=== PATIENT | male | born 1940 | race Caucasian/White ===

== ENCOUNTER → 2021-11-10 14:21 | Outpatient (BNVA) | payer MEDICARE, SELFPAY | PROVIDERS: Family Provider Electrodiagnostic Medicine; PCP Electrodiagnostic Medicine; Visit Provider Internal Medicine | DX: I10 Essential (primary) hypertension (principal); I25.10 Atherosclerotic heart disease of native coronary artery without angina pectoris; E78.5 Hyperlipidemia, unspecified; Z87.891 Personal history of nicotine dependence | CPT/HCPCS: 99214 ==

== ENCOUNTER → 2022-08-10 14:34 | Outpatient (BNVA) | payer MEDICARE, SELFPAY | PROVIDERS: Family Provider Electrodiagnostic Medicine; PCP Electrodiagnostic Medicine; Visit Provider Internal Medicine | DX: I10 Essential (primary) hypertension (principal); I25.10 Atherosclerotic heart disease of native coronary artery without angina pectoris; E78.5 Hyperlipidemia, unspecified; Z87.891 Personal history of nicotine dependence | CPT/HCPCS: 99214 ==

== ENCOUNTER → 2023-05-18 12:42 | Outpatient (BNVA) | payer MEDICARE, SELFPAY | PROVIDERS: Family Provider Electrodiagnostic Medicine; PCP Electrodiagnostic Medicine; Visit Provider Internal Medicine | DX: I10 Essential (primary) hypertension (principal); I25.10 Atherosclerotic heart disease of native coronary artery without angina pectoris; E78.5 Hyperlipidemia, unspecified; Z87.891 Personal history of nicotine dependence | CPT/HCPCS: 99213 ==

== ENCOUNTER → 2023-11-23 14:18 | Outpatient (BNVA) | payer MEDICARE, SELFPAY | PROVIDERS: Family Provider Electrodiagnostic Medicine; PCP Electrodiagnostic Medicine; Visit Provider Internal Medicine | DX: I10 Essential (primary) hypertension (principal); I25.10 Atherosclerotic heart disease of native coronary artery without angina pectoris; E78.5 Hyperlipidemia, unspecified; Z87.891 Personal history of nicotine dependence | CPT/HCPCS: 99214 ==

== ENCOUNTER → 2024-08-29 12:49 | Outpatient (BNVA) | payer MEDICARE, SELFPAY | PROVIDERS: Family Provider Electrodiagnostic Medicine; PCP Electrodiagnostic Medicine; Visit Provider Internal Medicine Cardiovascular Disease | DX: I25.10 Atherosclerotic heart disease of native coronary artery without angina pectoris (principal); I10 Essential (primary) hypertension; E78.5 Hyperlipidemia, unspecified; Z87.891 Personal history of nicotine dependence | CPT/HCPCS: 99214 ==

== ENCOUNTER 2024-10-13 11:02 | Inpatient (IN) | payer MEDICARE, SELFPAY ==
[2024-10-13] VITALS (40 sets, daily range): BP systolic 110–219; BP diastolic 66–136; PULSE 63–92; RESP 12–29; TEMP 36.4–36.7; O2SAT 89–97
--- NOTE | 2024-10-13 10:45 | CT_ITS ---
WS: [id number] CT HEAD NONCONTRAST HISTORY: Symptoms of acute stroke TECHNIQUE: Contiguous axial imaging performed through the brain. Bone and soft tissue windows. Sagittal and coronal reformats reviewed. All CT scans at [facility] use at least one of these dose optimization techniques: automated exposure control; mA and/or kV adjustment per patient size (includes targeted exams where dose is matched to clinical indication); or iterative reconstruction. DLP: 1299.73 mGy COMPARISON: None available. No acute intracranial hemorrhage, midline shift or mass effect. Moderate atrophy and moderate small vessel disease. Moderate cerebellar atrophy. No edema or sulcal effacement. Ventricles: Ventricles are very mildly prominent on the basis of atrophy. No inferior displacement of the cerebellar tonsils. Paranasal sinuses: As visualized are clear. Mastoid air cells: Well pneumatized. Calvarium and scalp: Skull is intact with no soft tissue edema or swelling. CT/CT head thrombolytic 21747 IMPRESSION: 1. No acute intracranial hemorrhage or edema. 2. Moderate cerebral and cerebellar atrophy with small vessel disease. Notified Freida Benson MD at 10/13/2024 11:08 AM.
--- NOTE | 2024-10-13 10:58 | ED_ITS ---
HPI - Neuro Symptoms/Deficit 2 General: Chief Complaint: Neuro Symptoms/Deficit Stated Complaint: stroke alert History of Present Illness: 84-year-old man with a history of poole ry artery disease status post stents about 13 years ago, hyperlipidemia and hypertension who presents emergency room with strokelike symptoms. His last known well time was 9:30 AM. Arrival time was around 11 AM. Symptoms started after he got to breakfast and it was recognized at 1030 by family that he had changed. He has right-sided facial droop. Some right sided arm and leg weakness. 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 Some slurred speech secondary to the facial droop. He answers questions appropriately. No visual deficits. He is on Plavix but not on any anticoagulation such as Eliquis Xarelto or Coumadin. Related Data Home Medications ?Medication ?Instructions ?Recorded ?Confirmed aspirin 81 mg tablet,delayed 81 mg PO DAILY 08/17/19 0 08/29/24 release (Aspir-) Previous Rx's ?Medication ?Instructions ?Recorded nitroglycerin 0.4 mg sublingual 0.4 mg sublingual Q5M PRN chest 04/20/22 tablet pain #25 tabs simvastatin 40 mg tablet See Rx Instructions .Route 0 04/30/23 .COMPLEX #90 tabs furosemide 20 mg tablet See Rx Instructions .Route 1 02/21/23 .COMPLEX #90 tabs valsartan 80 See Rx Instructions .Route 0 05/11/24 mg-hydrochlorothiazide 12.5 mg .COMPLEX #180 tabs tablet clopidogrel 75 mg tablet See Rx Instructions .Route 0 05/15/24 .COMPLEX #90 tabs potassium chloride 20 mEq See Rx Instructions .Route 0 05/15/24 tablet,extended release(part/cryst) .COMPLEX #90 tabs carvedilol 25 mg tablet See Rx Instructions .Route 0 05/18/24 .COMPLEX #270 tabs Allergies Allergy/AdvReac Type Severity Reaction Status Date / Time lisinopril Allergy Unknown Verified 08/29/24 13:41 Review of Systems 2 Narrative: Constitutional symptoms: Negative except as documented in HPI. Skin symptoms: Negative except as documented in HPI. Eye symptoms: Negative except as documented in HPI. ENMT symptoms: Negative except as documented in HPI. Respiratory symptoms: Negative except as documented in HPI. Cardiovascular symptoms: Negative except as documented in HPI. Gastrointestinal symptoms: Negative except as documented in HPI. Genitourinary symptoms: Negative except as documented in HPI. Musculoskeletal symptoms: Negative except as documented in HPI. Neurologic symptoms: Negative except as documented in HPI. Psychiatric symptoms: Negative except as documented in HPI. Endocrine symptoms: Negative except as documented in HPI. PFSH ED 2 PFSH: Medical History (Updated 10/13/24 @ 13:19 by Freida Benson MD) History of hypertension Hx of obesity Hx of hyperlipidemia Hx of arteriosclerotic cardiovascular disease Family History Other Dementia Denies family history of Diabetes CAD (coronary artery disease) Hyperlipidemia Anesthesia complication Bleeding disorder Family history of premature coronary artery disease Lung disease Hypertension Stroke Social History Smoking and tobacco/nicotine status: former use of tobacco/nicotine Alcohol intake: never Substance/Drug Use: never Physical Exam 2 Narrative: EXAM NARRATIVE: General: Alert, no acute distress. Skin: Warm, dry. Head: Normocephalic, atraumatic. Neck: Supple, trachea midline. Eye: Extraocular movements are intact. Ears, nose, mouth and throat: mucosa moist. Cardiovascular: Regular, Normal peripheral perfusion. Respiratory: Lungs are clear to auscultation, respirations are non-labored, breath sounds are equal, Symmetrical chest wall expansion. Gastrointestinal: Soft, Nontender, Non distended Musculoskeletal: Normal ROM, no deformity. Neurological: Alert and oriented, No focal neurological deficit observed. Psychiatric: Cooperative, appropriate mood & affect. Course 2 Vital Signs: Vital signs: Vital Signs Pulse Rate 77 10/13/24 12:49 Respiratory Rate 18 10/13/24 12:49 Blood Pressure 165/98 10/13/24 12:49 Pulse Oximetry 93 10/13/24 12:49 Oxygen Delivery Me thod Room Air, Nasal C annula 10/13/24 12:49 MDM - Neuro Symptoms/Deficit Medical Decision Making Medical decision making: Differential diagnosis for patient with focal neurologic deficit(s) includes but not limited to and based on the above HPI, review of systems and physical exam: ischemic stroke, hemorrhagic stroke and embolic stroke secondary to atrial fibrillation), TIA, Santos's palsey, metabolic encephalopathy with previous stroke. Orders placed to evaluate differential diagnosis based on the above differential, HPI and physical exam 1103: Time of arrival 1105: Performed my first exam at the CT scanner just prior to CT scan. Positive for stroke symptoms. 1107: NIH Stroke Scale/Score (NIHSS) from [employer] on 10/13/2024 All calculations should be rechecked by clinician prior to use RESULT SUMMARY: 5 points NIH Stroke Scale Still using NIHSS for all strokes? Don't miss a posterior one without HINTS! INPUTS: 1A: Level of consciousness ?> 0 = Alert; keenly responsive 1B: Ask month and age ?> 0 = Both questions right 1C: 'Blink eyes' & 'squeeze hands' ?> 0 = Performs both tasks 2: Horizontal extraocular movements ?> 0 = Normal 3: Visual donald ?> 0 = No visual loss 4: Facial palsy ?> 2 = Partial paralysis (lower face) 5A: Left arm motor drift ?> 0 = No drift for 10 seconds 5B: Right arm motor drift ?> 1 = Drift, but doesn't hit bed 6A: Left leg motor drift ?> 0 = No drift for 5 seconds 6B: Right leg motor drift ?> 1 = Drift, but doesn't hit bed 7: Limb Ataxia ?> 0 = No ataxia 8: Sensation ?> 0 = Normal; no sensory loss 9: Language/aphasia ?> 0 = Normal; no aphasia 10: Dysarthria ?> 1 = Mild-moderate dysarthria: slurring but can be understood 11: Extinction/inattention ?> 0 = No abnormality 1109: I spoke to Dr. Gresham and she evaluated the patient in the room. 1110: I spoke with Dr. Berumen with radiology who confirms there are no acute findings on head CT. No hemorrhage. CT head: No acute intracranial process. no intracranial hemorrhage, no evidence of infarct. no evidence of acute fracture.This was reviewed and interpreted by myself the ER physician. 1112: TNKase was administered. This was under the direction of Dr. Gresham the neurologist. EKG: Time 1117. Rate 65. Atrial fibrillation with controlled rate, there is some ST elevation in leads V1 to V3. No reciprocal changes. Patient is having no chest pain., no ectopy, This was reviewed and interpreted by myself the ER physician at 11:20 AM Consultation: I spoke with Dr. Roldan who reviewed the EKG. He does agree there is some elevation and recommends continued monitoring of troponins and serial EKGs. Does not feel this is a STEMI. Particular given lack of symptoms and given that he just received TNKase no further intervention at this time Lab Review: Laboratory results were reviewed and interpreted by myself the emergency room physician. No leukocytosis. No anemia. No renal failure. Urinalysis is negative for infection. CTA of the head and neck: No high-grade cervical carotid artery stenosis. Distal left MCA territory decreased vascularity. Decreased flow to the left M3/M4 segments. No large central thrombus. Suspect that this is the area of ischemia. This was reviewed and interpreted by myself the emergency room physician. I also reviewed the radiology report. I reviewed the patient's medical record. 84-year-old man with a history of coronary artery disease status post stents about 13 years ago, hyperlipidemia and hypertension. I also reviewed the chart here. He follows with cardiology regularly but there is no EKG for comparison. Reexamination: 1305. Patient still has facial droop and some slight slurred speech. Minimal improvement of right sided weakness. Still follows commands and answers questions appropriately. No increased work of breathing. No oxygen requirements. No headache. Consultation: I spoke with Dr. Adame who is on-call for the hospitalist service who agrees to admission. Assessment and plan: Cerebrovascular accident Hypertension Right-sided weakness Hyperglycemia ?TNKase per neurology instructions as above ?Labetalol for blood pressure IV. ?10 units IV insulin -I discussed the patient with the hospitalist on-call who is admitting the patient. - Discussed findings and plan with patient. Answered any questions. - All laboratory values were reviewed and interpreted personally by myself, the ER physician - All imaging was reviewed and interpreted personally by myself, the ER physician. - Evaluation and treatment of this problem were appropriate in the emergency setting Critical Care: -I spent a total of >35 minutes of critical care time managing the patient, independent of any other practitioner. -The time involved in the performance of separately reportable procedures was not counted towards critical care time. Lab Data 10/13/24 11:18 10/13/24 11:[address] 10/13/24 10:45 IMPRESSION: 1. No acute intracranial hemorrhage or edema. 2. Moderate cerebral and cerebellar atrophy with small vessel disease. Notified Freida Benson MD at 10/13/2024 11:08 AM. Head/Neck CTA 10/13/24 11:30 IMPRESSION: 1. No high-grade cervical carotid artery stenosis. Mild plaque at the bifurcations. 2. Paucity of vessels and decreased vascularity to the distal LEFT MCA territory. Decreased flow near the LEFT M3/M4 segment. No large central thrombus noted. Suspect this is the area of ischemia. 3. Mild calcified plaque in the intracranial carotid arteries. Laboratory Results WBC 7.95 10^3/uL (3.29-11.43) 10/13/24 11:18 RBC 5.36 10^6/uL (3.85-5.65) 10/13/24 11:18 Hgb 16.00 g/dL (11.27-16.99) 10/13/24 11:18 Hct 47.3 % (37-53) 10/13/24 11:18 MCV 88.2 fl (82-101) 10/13/24 11:18 MCH 29.9 pg (27-33) 10/13/24 11:18 MCHC 33.8 g/dL (30-55) 10/13/24 11:18 RDW 13.8 % (12.1-15.1) 10/13/24 11:18 Plt Count 213 10^3/cmm (157-399) 10/13/24 11:18 MPV 10.9 fL (7.4-10.4) H 10/13/24 11:18 Neut % (Auto) 75.1 % 10/13/24 11:18 Lymph % (Auto) 17.6 % 10/13/24 11:18 [place] % (Auto) 5.3 % 10/13/24 11:18 Eos % (Auto) 1.1 % 10/13/24 11:18 Baso % (Auto) 0.5 % 10/13/24 11:18 Neut # (Auto) 5.97 10^3/uL (1.8-7.7) 10/13/24 11:18 Lymph # (Auto) 1.4 10^3/uL (0.8-4.8) 10/13/24 11:18 [place] # (Auto) 0.4 10^3/uL (0.2-0.9) 10/13/24 11:18 Eos # (Auto) 0.1 10^3/uL (0.0-0.8) 10/13/24 11:18 Baso # (Auto) 0.0 10^3/uL (0.0-0.1) 10/13/24 11:18 Nucleated RBC % (auto) 0 % 10/13/24 11:18 Nucleated RBCs # 0.0 /100WBC 10/13/24 11:18 PT 12.60 SECONDS (12.1-14.9) 10/13/24 11:18 INR 0.88 (0.8-1.2) 10/13/24 11:18 APTT 27.3 SECONDS (23.9-36.7) 10/13/24 11:18 Sodium 131 mmol/L (136-145) L 10/13/24 11:18 Potassium 4.6 mmol/L (3.5-5.1) 10/13/24 11:18 Chloride 94 mmol/L (98-107) L 10/13/24 11:18 Carbon Dioxide 24 mmol/L (22-29) 10/13/24 11:18 Anion Gap 17.6 (5-19) 10/13/24 11:18 BUN 12 mg/dL (8-23) 10/13/24 11:18 Creatinine 0.9 mg/dL (0.7-1.2) 10/13/24 11:18 GFR Calculation Not Reportable 10/13/24 11:18 Glucose 423 mg/dL (65-115) H 10/13/24 11:18 POC Glucose 343 mg/dL (70-110) H 10/13/24 12:20 Calculated Osmolality 290 mOsm/kg (285-295) 10/13/24 11:18 Calcium 8.9 mg/dL (8.5-10.5) 10/13/24 11:18 Total Bilirubin 0.3 mg/dL (0.15-1.2) 10/13/24 11:18 AST 13 U/L (0-40) 10/13/24 11:18 ALT 10 U/L (0-41) 10/13/24 11:18 Alkaline Phosphatase 57 U/L (40-130) 10/13/24 11:18 Troponin T Baseline 26 ng/L (0-15) H 10/13/24 11:18 Total Protein 7.4 g/dL (6.6-8.7) 10/13/24 11:18 Albumin 4.1 g/dL (3.5-5.2) 10/13/24 11:18 Globulin 3.3 g/dL (1.3-4.6) 10/13/24 11:18 Urine Color Yellow (Yellow) 10/13/24 12:12 Urine Appearance Clear (CLEAR) 10/13/24 12:12 Urine pH 5.5 (5-7) 10/13/24 12:12 Ur Specific [place] 1.029 (1.005-1.030) 10/13/24 12:12 Urine Protein Negative (Negative) 10/13/24 12:12 Urine Glucose (UA) 3+ (Normal) H 10/13/24 12:12 Urine Ketones Negative (Negative) 10/13/24 12:12 Urine Blood Negative (Negative) 10/13/24 12:12 Urine Nitrate Negative (Negative) 10/13/24 12:12 Urine Bilirubin Negative (Negative) 10/13/24 12:12 Urine Urobilinogen 0.2 mg/dL (Negative) 10/13/24 12:12 Ur Leukocyte Esterase Negative (Negative) 10/13/24 12:12 Urine RBC 0-2 /hpf (0-2) 10/13/24 12:12 Urine WBC 0-5 /hpf (0-5) 10/13/24 12:12 Ur Squamous Epith Cells 0-5 /hpf (0-5) 10/13/24 12:12 Amorphous Sediment Not Reportable 10/13/24 12:12 Urine Bacteria None seen /hpf (NONE) 10/13/24 12:12 Hyaline Casts 0-4 /lpf H 10/13/24 12:12 Urine Opiates Screen Negative ng/mL (Negative) 10/13/24 12:12 Ur Barbiturates Screen Negative ng/mL (Negative) 10/13/24 12:12 Ur Phencyclidine Scrn Negative ng/mL (Negative) 10/13/24 12:12 Ur Amphetamines Screen Negative ng/mL (Negative) 10/13/24 12:12 U Benzodiazepines Scrn Negative ng/mL (Negative) 10/13/24 12:12 Urine Cocaine Screen Negative ng/mL (Negative) 10/13/24 12:12 U Marijuana (THC) Screen Negative ng/mL (Negative) 10/13/24 12:12 All radiology interpretation(s) finalized by discharge Discharge Plan Discharge Patient Disposition: Admitted As Inpatient Clinical Impression: Cerebrovascular accident, Hypertension, Acute right-sided weakness, Weakness on right side of face Condition: Stable Coding Level of Care Code ED Imagery Analyst for Karen Luis
[2024-10-13] MEDS: labetalol 5 mg/mL SDV 20mL 10 MG IVP (11:08)
[2024-10-13] MEDS: tenecteplase 50mg Kit (STROKE) 25 MG IVP (11:12)
--- NOTE | 2024-10-13 11:17 | ECG_ITS ---
[facility] [employer] Test Date: 2024-10-13 Pat Name: Javi Cedeño Department: Room: Gender: Male Manager Control: : 1940 Requested By: Freida Rojo Order Number: [id number] Steve MD: Izabela Jung M.D. Measurements Intervals [place] Rate: 65 P: 0 IA: 0 QRS: 51 QRSD: 117 T: 157 QT: 448 QTc: 469 Interpretive Statements ATRIAL FIBRILLATION ANTEROLATERAL MYOCARDIAL INFARCTION , PROBABLY RECENT [40+ ms Q WAVE IN I/aVL/V3-V6] ACUTE AL No previous ECG available for comparison Electronically Signed On 10-13-2024 20:20:50 CDT by Izabela Jung M.D. [email or web address]
--- NOTE | 2024-10-13 11:30 | CT_ITS ---
WS: [id number] CT ANGIOGRAM CEREBRAL AND CAROTID ARTERIES HISTORY: Possible stroke TECHNIQUE: CT angiogram is performed of the carotid and cerebral arteries. During arterial injection imaging is obtained from the skull vertex to the aortic arch in 1.25 mm imaging. Coronal and sagittal reformats are submitted. Additional multi planar reformats of the carotid and cerebral arteries are submitted, MIP imaging also reviewed. NASCET criteria utilized. All CT scans at [facility] use at least one of these dose optimization techniques: automated exposure control; mA and/or kV adjustment per patient size (includes targeted exams where dose is matched to clinical indication); or iterative reconstruction. CONTRAST: Omnipaque 350; 100 mL IV. DLP: 573.08 mGy.cm COMPARISON: None available. Carotid Angiogram: Right carotid: Common carotid artery: Arises normally from the innominate artery. No significant plaque or stenosis. Internal carotid artery: Mild intimal thickening and a few scattered plaques at the bifurcation. No high-grade stenosis. External carotid artery: Patent. Left carotid: Common carotid artery: Arises normally from the aorta. No significant plaque or stenosis. Internal carotid artery: Mild circumferential intimal thickening and calcified plaque. No high-grade stenosis. External carotid artery: Patent. Right vertebral artery: Unremarkable. Left vertebral artery: Patent. There are few areas of very mild narrowing in the transverse foramina. No occlusion. Subclavian arteries: No stenosis or significant abnormality. Upper thorax: Breathing artifact. Mild atherosclerosis aorta. Thyroid gland: Normal. Osseous structures: Degenerative disc disease and facet joint arthropathy. CEREBRAL ANGIOGRAM: Intracranial vertebral arteries: Normal with no significant atherosclerosis. Basilar artery: No significant stenosis or occlusion. No aneurysm. Intracranial Internal carotid arteries: Intracranial carotid arteries are patent but there is a moderate amount of plaque to the cavernous carotid sinuses. Stenosis estimated near 50%. Middle cerebral arteries: M1 and M2 segments are normal. There is a paucity of vessels in the distal LEFT MCA territory. Area of decreased flow at the LEFT M3/M4 segments. Decreased vascularity in the distal LEFT MCA territory. Anterior cerebral arteries and ACOM: Normal. Posterior cerebral arteries and PCOM's: Normal. Small caliber LEFT posterior communicating artery. Dural venous sinuses are normally enhancing. Mastoid air cells: Normal. Paranasal sinuses: Normal. Calvarium: Normal. CT/CT angio headneck* [id number] IMPRESSION: 1. No high-grade cervical carotid artery stenosis. Mild plaque at the bifurcat ions. 2. Paucity of vessels and decreased vascularity to the distal LEFT MCA territo ry. Decreased flow near the LEFT M3/M4 segment. No large central thrombus noted . Suspect this is the area of ischemia. 3. Mild calcified plaque in the intracranial carotid arteries.
[2024-10-13 11:31] LABS: Hematocrit 47.3 % (37-53); Hemoglobin 16.00 g/dL (11.27-16.99); Mean Corpuscular HGB Conc 33.8 g/dL (30-55); Mean Corpuscular Hemoglobin 29.9 pg (27-33); Mean Corpuscular Volume 88.2 fl (82-101); Nucleated Red Blood Cells % 0 %; Platelet Count 213 10^3/cmm (157-399); Red Blood Count 5.36 10^6/uL (3.85-5.65); White Blood Count 7.95 10^3/uL (3.29-11.43)
[2024-10-13 11:44] LABS: INR 0.88 (0.8-1.2); Prothrombin Time 12.60 SECONDS (12.1-14.9)
[2024-10-13 11:45] LABS: Partial Thromboplastin Time 27.3 SECONDS (23.9-36.7)
[2024-10-13 11:49] LABS: Troponin(5th) Baseline 26 ng/L (0-15)
[2024-10-13 11:50] LABS: Alanine Aminotransferase 10 U/L (0-41); Albumin Level 4.1 g/dL (3.5-5.2); Alkaline Phosphatase 57 U/L (40-130); Anion Gap 17.6 (5-19); Aspartate Amino Transferase 13 U/L (0-40); Blood Urea Nitrogen 12 mg/dL (8-23); Calcium 8.9 mg/dL (8.5-10.5); Carbon Dioxide 24 mmol/L (22-29); Chloride 94 mmol/L (98-107); Creatinine Clr Calc Pharmacy 68.9276; Globulin 3.3 g/dL (1.3-4.6); Glucose 423 mg/dL (65-115); Osmolality Calculated 290 mOsm/kg (285-295); Potassium 4.6 mmol/L (3.5-5.1); Sodium 131 mmol/L (136-145); Total Protein 7.4 g/dL (6.6-8.7)
[2024-10-13] MEDS: iohexol 350 mg/mL 500 mL Btl (per mL) IV (12:00)
--- NOTE | 2024-10-13 12:12 | P.PNCC_ITS ---
Stroke Alert Activation ED Arrival Date: 10/13/24 ED Arrival Time: 10:45 ED Physican at Bedside: 10:58 Last Known Normal/at Baseline: 1-2 hours ago Other Last Known Well Infomation: A stroke alert was called by EMS at 1042, prior to arrival. They picked this patient [place] in [place] 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 He says that he got up this morning and drove to [employer] and had breakfast. Sometime while he was there he started feeling a little unsteady but he drove home. By the time he got home his speech was slurred. He got to [employer] at around 9 or 930 and that is considered to be his time last known well. The medic indicates that the patient's speech was easily intelligible at the time they picked him up and now it is hard to understand anything he says. He has right hemiplegia and did on arrival. Consideration for thrombolytic therapy was from time of arrival and his CT scan, obtained on arrival was unremarkable. His blood pressure was markedly elevated but 1 dose of labetalol brought it down and we were able to initiate TNK with his permission and informed consent at 1112. His [id number] glucose was elevated over 400 something like 412, which was not a contraindication. Stroke Alert Activated by: EMS Stroke Alert Activation Time: 10:42 Stroke MD @ Bedside Time: 11:00 NIH Stroke Scale Time: 11:00 NIH stroke score NIHSS: Level Of Consciousness - 1a: 0 Level Of Consciousness Questions - 1b: Both Correct Level Of Consciousness Commands - 1c: Both Correct Best Gaze - 2: Normal Visual Doll - 3: No Visual Loss Facial Palsy - 4: Partial Paralysis Motor Arm Right - 5: Drift Motor Arm Left - 5: No Drift Motor Leg Right - 6: Effort Against [place] Motor Leg Left - 6: No Drift Limb Ataxia - 7: Absent Sensory - 8: Mild To Moderate Loss (Right leg) Best Language - 9: No Aphasia Dysarthia - 10: Severe Dysarthia Extinction And Inattention - 11: 0 Score: Total Score: 8 Stroke Alert Data/Treatment Time to CT of Head: 11:00 CT Results Time: 11:08 CT Impression: Diffuse atrophy Stroke Risk Factors: coronary artery disease, hyperlipidemia, hypertension and previous [place] tPA Started Date: 10/13/24 tPA Started Time: tPA Started - Time: 11:12 tPA Admin Prior to Arrival: No Patient & Family Educated on: Treament Plan and tPA Risks/Benefits Other Patient & Family Education: I personally obtained informed consent from the patient and explained the treatment process and that what he would be admitted to ICU and receive physical and Occupational Therapy Standardized Stroke Orders Used: Yes Other Information: CTA in process she has bilateral carotid stenosis but not critical. Middle cerebral and anterior cerebral arteries appear intact. Posterior circulation also intact. Multiple calcifications within the vascular system. I do not see a large vessel occlusion but the radiologist is reading. Critical Care Time Critical Care Time: 30 - 74 mins A&P Assessment and plan 1. Left acute arterial ischemic stroke, MCA (middle cerebral artery): This is an otherwise healthy 84-year-old blandon already on Plavix and aspirin for coronary disease who presents with what appears to be a subcortical left internal capsule stroke based on weakness of the arm, face and leg. No sign of a large vessel occlusion on my reading of the CTA but the radiologist is continuing to review that. He received TNK within a couple of hours of onset of symptoms. We were delayed because his blood pressure was markedly elevated and his blood pressure will need to be closely monitored post TNK. Plan to admit to ICU to the hospitalist and please call me if there are any issues or concerns. 2. Hypertension: 3. CAD (coronary artery disease): PDMP PDMP Reviewed: Not Reviewed Coding Level of Care Code Acute Code for [facility] Fwd Diagnoses Left acute arterial ischemic stroke, MCA (middle cerebral artery) I63.512 Hypertension I10 CAD (coronary artery disease) I25.10
--- NOTE | 2024-10-13 12:21 | PC.NURSE ---
pt glucose on arrival 423. [phone] via FS prior to administering 10u of insulin. pt ate prior to arrival and took Metformin this morning. per Dr. Benson to hold 10 unit insulin at this time.
[2024-10-13 12:34] LABS: Glucose Urine UA 3+ (Normal); Nitrate Urine Negative (Negative); Specific Gravity, Urine 1.029 (1.005-1.030)
[2024-10-13 12:39] LABS: PCP Screen Urine Negative (Negative)
[2024-10-13 12:40] LABS: Add Urine Microscopic? YES
--- NOTE | 2024-10-13 13:21 | USCV_ITS ---
Javi Cedeño Age: 84 Gender: M : 1940 Exam Date: 10/13/2024 15:58 Ordering Phys: John Adame MD Technologist: Exam Location: [facility] [place] Indication: CVA BP: 174 / 124 HR: 89 Rhythm: Sinus Technical Quality: Adequate MEASUREMENTS (Male / Female) Normal Values 2D ECHO LVOT Diameter 2.1 cm LV Ejection Fraction MOD 4C 41.6 % LV Ejection Fraction MOD 2C 45.2 % LV Ejection Fraction 2C AL 42.9 % LA Diameter 4.0 cm RA Systolic Volume 4C AL 74.0 ml RA Systolic Volume 4C MOD 72.7 ml Aorta at Sinotubular Diameter 3.1 cm M-MODE LA Ao Ratio MM 1.5 AV Cusp Separation MM 2.4 cm DOPPLER AV Peak Velocity 163.0 cm/s LVOT Peak Velocity 93.0 cm/s AV Area Cont Eq vti 2.1 cm squared AV Area Cont Eq pk 1.9 cm squared MV Peak Velocity 135.0 cm/s MV Area PHT 5.0 cm squared Mitral E to A Ratio 3.2 TR Peak Velocity 109.0 cm/s TR Peak Gradient 4.8 mmHg PV Peak Velocity 120.0 cm/s FINDINGS Left Ventricle Technically limited quality echocardiogram. LV systolic function is moderate to severely reduced with EF of 30 to 35%. Apical wall is akinetic. Right Ventricle Normal in size and function Right Atrium Normal right atrial size. Left Atrium Severely increased left atrial size. Mitral Valve Grossly normal. Trace mitral regurgitation Aortic Valve Thickened aortic valve. No significant stenosis or regurgitation. Tricuspid Valve Insufficient TR jet to assess RVSP Pulmonic Valve Not well visualized Pericardium Normal Aorta Normal in size IVC Not well visualized CONCLUSIONS LV systolic function is moderate to severely reduced with EF of 30-35%. Apical wall is akinetic. Severely dilated left atrium. Trace mitral regurgitation. Huseyin Roldan MD (Electronically Signed) Final Date: 14 October 2024 08:00 S
--- NOTE | 2024-10-13 13:30 | ECG_ITS ---
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 Measurements Intervals [place] Rate: 67 P: 0 CT: 0 QRS: 58 QRSD: 109 T: 66 QT: 425 QTc: 449 Interpretive Statements ATRIAL FIBRILLATION WITH ABERRANT CONDUCTION OR VENTRICULAR PREMATURE COMPLEXES ANTEROLATERAL MYOCARDIAL INFARCTION , OF INDETERMINATE AGE [40+ ms Q WAVE IN I/aVL/V3-V6] Compared to ECG 10/13/2024 11:17:54 Ventricular premature complex(es) now present Aberrant conduction of supraventricular beat(s) now present Myocardial infarct finding still present Electronically Signed On 10-13-2024 20:29:16 CDT by Izabela Jung M.D. [email or web address]
[2024-10-13 13:46] LABS: Thyroid Stimulating Hormone 2.97 uIU/mL (0.27-4.20)
[2024-10-13 14:13] LABS: Troponin 5 2HR 27.67 ng/L (0-15); Troponin 5 2HR Delta 1.67 ABS# (0-10)
--- NOTE | 2024-10-13 14:34 | P.HP_ITS ---
Providers/Chief Complaint 2 Admitting Physician: John Adame MD Primary Care Provider: Cordell Parrish DO Chief Complaint: stroke alert History of Present Illness Javi Cedeño is a 84 year old male with past medical history of CAD, hypertension, hyperlipidemia was brought into the ER via EMS today because of slurred speech and weakness on the right side of the body. Patient states he started having symptoms sometime around 9-9 30. Stroke code was called at 1042. He was found to have an NIH score of 8. Patient was seen by neurology in the ER and was given tenecteplase. When seen in the ICU with nephew at bedside patient still having slurred speech, awake and alert. Found to have A-fib with controlled rate on telemetry monitoring. Complaining of weakness on the right side. Denies any pain. Review of Systems 2 General: Reports: 10 or more systems reviewed and unremarkable except in HPI and below Const: Denies: fever(s), chills, body aches, change in appetite, change in weight, malaise, night sweats, diaphoresis, change in sleep pattern, daytime sleepiness or snoring Eyes: Denies: change in vision, blurry vision, photophobia, eye discomfort or eye discharge ENMT: Denies: throat pain, enlarged tonsils, hoarseness, mouth pain, oral sores, dry mouth, tinnitus, nasal congestion or post nasal drip Card: Denies: chest pain, palpitations, irregular heart rhythm, edema, swelling of feet/ankles, lightheadedness, syncope, pre-syncope, dyspnea on exertion, orthopnea, leg pain with exertion or acrocyanosis Resp: Denies: dyspnea, productive cough, non-productive cough, wheezing, stridor, pain on inspiration, change in phlegm color, hemoptysis or chest congestion GI: Denies: abdominal pain, nausea, vomiting, hematemesis, coffee ground emesis, dysphagia, heartburn, diarrhea, constipation, bloating, GI cramping, change in bowel habits, pain on defecation, hematochezia or melena : Denies: flank pain, difficulty urinating, dysuria, urinary frequency, urinary urgency, urinary hesitancy, urinary dribbling, difficulty starting urination, change in urine stream, nocturia or hematuria Musc: Denies: neck pain, back pain, extremity pain, joint pain, joint swelling, joint redness, joint stiffness or limited range of motion Neuro: Denies: headache(s), numbness in extremities, weakness in extremities, sensory changes, lack of coordination, difficulty walking, frequent falls, dizziness, vertigo, confusion, Slurred speech present, difficulty communicating thoughts or seizure-like activity Psych: Denies: anxiety, depression, mood swings, panic attacks, hopelessness or irritability Endo: Denies: polyuria, polydipsia, tired all the time, cold intolerance, excessive sweating, flushing or heat intolerance David/Lymph: Denies: easy bruising or easy bleeding All/Imm: Denies: tongue swelling, facial swelling or acute wheezing Medications/Allergies Home Medications ?Medication ?Instructions ?Recorded ?Confirmed ?Last Taken ?Type aspirin 81 mg tablet,delayed 81 mg PO DAILY 08/17/19 0 08/29/24 Unknown History release (Aspir-) nitroglycerin 0.4 mg sublingual 0.4 mg sublingual Q5M PRN chest 04/20/22 08/29/24 Unknown Rx tablet pain #25 tabs simvastatin 40 mg tablet See Rx Instructions .Route 0 04/30/23 11/23/23 Unknown Rx .COMPLEX #90 tabs furosemide 20 mg tablet See Rx Instructions .Route 1 02/21/23 08/29/24 Unknown Rx .COMPLEX #90 tabs valsartan 80 See Rx Instructions .Route 0 05/11/24 08/29/24 Unknown Rx mg-hydrochlorothiazide 12.5 mg .COMPLEX #180 tabs tablet clopidogrel 75 mg tablet See Rx Instructions .Route 0 05/15/24 08/29/24 Unknown Rx .COMPLEX #90 tabs potassium chloride 20 mEq See Rx Instructions .Route 0 05/15/24 08/29/24 Unknown Rx tablet,extended release(part/cryst) .COMPLEX #90 tabs carvedilol 25 mg tablet See Rx Instructions .Route 0 05/18/24 08/29/24 Unknown Rx .COMPLEX #270 tabs Allergies Allergy/AdvReac Type Severity Reaction Status Date / Time lisinopril Allergy Unknown Verified 08/29/24 13:41 PFSH Acute 2 PFSH: Medical History (Updated 10/13/24 @ 16:42 by John Adame MD) Hypertension Hx of type 2 diabetes mellitus Hx of obesity Hx of hyperlipidemia Hx of arteriosclerotic cardiovascular disease Surgical History (Updated 10/13/24 @ 14:37 by John Adame MD) History of percutaneous transluminal coronary angioplasty Hx of hernia repair Hx of right cataract extraction Family History Other Dementia Denies family history of Diabetes CAD (coronary artery disease) Hyperlipidemia Anesthesia complication Bleeding disorder Family history of premature coronary artery disease Lung disease Hypertension Stroke Social History Smoking and tobacco/nicotine status: former use of tobacco/nicotine Alcohol intake: never Substance/Drug Use: never Vitals/I&O/Wt Last Vital Signs Pulse 65 10/13/24 14:01 Resp 17 10/13/24 14:01 BP 175/104 10/13/24 14:01 Pulse Ox 96 10/13/24 14:01 O2 Del Method Room Air 10/13/24 14:01 Weight last 48 hrs Weight 103.873 kg Physical Exam 2 Narrative: General: No acute distress, AO x3 HEENT: PERRLA, pupils bilaterally equal and reactive Chest: Normal vesicular breath sounds, no added sounds, equal good air entry bilaterally CVS: S1-S2 regular, no murmurs, no tachycardia, no gallops, no rubs Abdomen: Soft, nontender, no organomegaly, bowel sounds present Neuro: No focal deficits, no facial deformity, AO x3, power 5/5 in all limbs Data 10/13/24 11:18 10/13/24 11:18 A&P Assessment and plan 1. Left acute arterial ischemic stroke, MCA (middle cerebral artery): Post tenecteplase. Appreciate neurology recommendation. Repeat CT scan of head in 24 hours. Fall precaution. Aspirin 24 hours after tenecteplase. Check echocardiogram. Appreciate CTA neck. Check A1c, lipid panel. Atorvastatin 80 mg daily. PT/OT/speech evaluation. Advance diet as per speech evaluation. Goal blood pressure less than 180/105 mmHg. 2. 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 Hypertension: Hold off on home dose of antihypertensive including valsartan, Coreg and hydrochlorothiazide. 4. CAD (coronary artery disease): 5. Hyperlipidemia: 6. Atrial fibrillation and flutter: Plan: Atrial fibrillation: New diagnosis. Given the above patient will need to be discharged on anticoagulation. Will start anticoagulation in 24 to 48 hours after tPA. CODE STATUS: Discussed in detail with the patient. Nephew will be the DPOA. DNR/DNI SCD for DVT prophylaxis Advance diet as per speech evaluation Protonix for PUD prophylaxis Discharge plan: Patient lives by himself. Nephew states it would be better if he continues to have weakness for him to possibly transition to SNF otherwise he is available to take patient his home his home as well but would want to see how he does in next 24 to 48 hours with PT. Case management alerted. PDMP PDMP Reviewed: Not Reviewed Attestations 2 Medical Necessity Statement*: Requires further hospitalization for management of right MCA infarct post tPA Care Critical Care Time: The high probability of a clinically significant, sudden or life threatening deterioration of the patient's [neurology] system(s) required my full and direct attention, intervention and personal management. The critical care time is as shown. This time is in addition to time spent performing any reported procedures but includes the following: [x] Data and vital sign review and interpretation [x] Patient assessment, examination and intervention [x] Documentation [x] Medication orders and management Critical Care Time (min): 65 Coding Level of Care Code Critical Care >/= 30 minutes Critical care time (in minutes): 65 The high probability of a clinically significant, sudden or life threatening deterioration, as referenced in this documentation, required my full and direct attention, intervention and personal management. The critical care time shown is in addition to time spent performing any reported separately billable procedures and includes the following: [x] Data and vital sign review and interpretation [x ] Patient assessment, examination and intervention [x] Medication orders and management [x] Patient/Family updates as able [x] Care Coordination and Documentation. 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
[2024-10-13 14:53] LABS: Iron 67 ug/dL (59-158); Total Iron Binding Capacity 275 mcg/dl; Unsaturated Iron Binding 208 ug/dL (112-347)
[2024-10-13] MEDS: hyDRALAzine 20 mg/mL INJ 1 mL 10 MG IVP ×2 (14:59→16:11)
[2024-10-13 15:05] LABS: Vitamin B12 230 pg/mL (232-1245)
[2024-10-13] MEDS: cyanocobalamin 1,000 mcg/mL SDV 1000 MCG IM (16:11)
[2024-10-13] MEDS: perflutren protein-a microsphr 0.22 mg/mL SDV 3 mL IV (16:21)
--- NOTE | 2024-10-13 17:25 | ECG_ITS ---
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 Measurements Intervals [place] Rate: 80 P: 0 IA: 0 QRS: 76 QRSD: 122 T: 0 QT: 390 QTc: 451 Interpretive Statements ATRIAL FIBRILLATION ANTEROLATERAL MYOCARDIAL INFARCTION , PROBABLY RECENT [40+ ms Q WAVE IN I/aVL/V3-V6] ACUTE MA Compared to ECG 10/13/2024 13:30:29 Ventricular premature complex(es) no longer present Aberrant conduction of supraventricular beat(s) no longer present Myocardial infarct finding still present Electronically Signed On 10-13-2024 20:27:19 CDT by Izabela Jung M.D. [email or web address]
[2024-10-13 17:30] LABS: Troponin 5 6HR 28.61 ng/L (0-15); Troponin 5 6HR Delta 2.61 ng/L (0-12)
[2024-10-14] VITALS (31 sets, daily range): BP systolic 114–187; BP diastolic 66–118; PULSE 66–85; RESP 10–22; TEMP 36.6; O2SAT 91–96
--- NOTE | 2024-10-14 08:17 | PC.PHAR ---
Pt states he used to take Metformin-unable to locate an order for it. Looks like future plan is to discharge to [facility].
--- NOTE | 2024-10-14 08:47 | XRR_ITS ---
PROCEDURE INFORMATION: Exam: XR Chest Exam date and time: 10/14/2024 10:03 AM Age: 84 years old Clinical indication: Cardiovascular condition or disease; Congestive heart failure (chf); Cause unknown; Additional info: Chf, fluid retention; Recent stroke TECHNIQUE: Imaging protocol: Radiologic exam of the chest. Views: 1 view. COMPARISON: CT angio headneck* [id number] 10/13/2024 11:45 AM FINDINGS: Lungs: Low lung volumes. No airspace consolidation. Pleural spaces: Unremarkable. No pleural effusion. No pneumothorax. Heart/Mediastinum: Cardiomegaly. Bones/joints: Unremarkable. XR/XR chest 1V portable [id number] IMPRESSION: Low lung volumes. No airspace disease. Cardiomegaly.
[2024-10-14] MEDS: cyanocobalamin 1,000 mcg/mL SDV 1000 MCG IM (09:29)
[2024-10-14 11:45] LABS: Hematocrit 52.2 % (37-53); Hemoglobin 17.80 g/dL (11.27-16.99); Mean Corpuscular HGB Conc 34.1 g/dL (30-55); Mean Corpuscular Hemoglobin 29.7 pg (27-33); Mean Corpuscular Volume 87.1 fl (82-101); Nucleated Red Blood Cells % 0 %; Platelet Count 253 10^3/cmm (157-399); Red Blood Count 5.99 10^6/uL (3.85-5.65); White Blood Count 11.65 10^3/uL (3.29-11.43)
[2024-10-14 12:05] LABS: Alanine Aminotransferase 10 U/L (0-41); Albumin Level 4.2 g/dL (3.5-5.2); Alkaline Phosphatase 64 U/L (40-130); Anion Gap 15.7 (5-19); Aspartate Amino Transferase 14 U/L (0-40); Blood Urea Nitrogen 10 mg/dL (8-23); Calcium 9.3 mg/dL (8.5-10.5); Carbon Dioxide 26 mmol/L (22-29); Chloride 95 mmol/L (98-107); Creatinine Clr Calc Pharmacy 76.1746; Globulin 3.5 g/dL (1.3-4.6); Glucose 242 mg/dL (65-115); Osmolality Calculated 283 mOsm/kg (285-295); Potassium 3.7 mmol/L (3.5-5.1); Sodium 133 mmol/L (136-145); Total Protein 7.7 g/dL (6.6-8.7)
[2024-10-14 12:14] LABS: Cholesterol 206 mg/dL (0-200); HDL Cholesterol 38 mg/dL (60-100); Magnesium 2.2 mg/dL (1.7-2.3); Triglycerides 178 mg/dL (0-150)
[2024-10-14 12:19] LABS: Estmated Average Glucose 243; Hemoglobin A1C 10.1 % (4.0-6.0)
[2024-10-14 12:25] LABS: NT Pro B Type Natriuretic Pept 1880 pg/mL (0-450)
--- NOTE | 2024-10-14 12:30 | CTR_ITS ---
PROCEDURE INFORMATION: Exam: CT Head Without Contrast Exam date and time: 10/14/2024 01:04 PM Age: 84 years old Clinical indication: Weakness, extremity; Right; Additional info: Acute stroke TECHNIQUE: Imaging protocol: Computed tomography of the head without contrast. Radiation optimization: All CT scans at this facility use at least one of these dose optimization techniques: automated exposure control; mA and/or kV adjustment per patient size (includes targeted exams where dose is matched to clinical indication); or iterative reconstruction. COMPARISON: CT angio headneck* [id number] 10/13/2024 11:45 AM RADIATION DOSE METRICS: Total DLP (mGy-cm): 1114.88 FINDINGS: Brain: Focal decreased attenuation within the lower steve, suggestive of infarct. Diffuse white matter changes suggestive of chronic microvascular ischemic changes. No acute intracranial hemorrhage, midline shift or mass effect. Mild diffuse cerebral atrophy. Cerebellar atrophy. No sulcal effacement to suggest edema. Cerebral ventricles: Normal in size and configuration. Paranasal sinuses: Mild mucosal thickening in the rightward sphenoid sinus. Mastoid air cells: Visualized mastoid air cells are well aerated. Bones: Unremarkable. No acute fracture. Soft tissues: Unremarkable. CT/CT head wo con* [id number] IMPRESSION: 1. Decreased attenuation involving the lower steve, suggestive of infarct, acuity uncertain. 2. No acute intracranial hemorrhage. 3. Diffuse cerebral and cerebellar atrophy.
--- NOTE | 2024-10-14 13:11 | PM.PN ---
Subjective Subjective: No acute events overnight. Patient has remained afebrile. Blood pressure is elevated. But at goal. Patient denies any new weakness. Vitals/I&O/Wt Last Vital Signs Temp 98 F 10/14/24 12:00 Pulse 82 10/14/24 12:00 Resp 20 H 10/14/24 12:00 BP 170/118 10/14/24 12:00 Pulse Ox 95 10/14/24 11:00 O2 Del Method Room Air 10/14/24 09:30 10/13/24 10/14/24 10/14/24 22:59 06:59 14:59 Output Total 825 / 825 250 / 1075 Balance -825 / -825 -250 / -1075 Weight last 48 hrs Weight 100.289 kg Weight 103 kg Weight 103.873 kg Physical Exam Narrative: General: No acute distress, AO x3 HEENT: PERRLA, pupils bilaterally equal and reactive Chest: Normal vesicular breath sounds, no added sounds, equal good air entry bilaterally CVS: S1-S2 regular, no murmurs, no tachycardia, no gallops, no rubs Abdomen: Soft, nontender, no organomegaly, bowel sounds present Neuro: No focal deficits, no facial deformity, AO x3, power 5/5 in all limbs Data 10/14/24 11:35 10/14/24 11:35 A&P Assessment and plan 1. Left acute arterial ischemic stroke, MCA (middle cerebral artery): Post tenecteplase. Appreciate neurology recommendation. Repeat CT scan of head in 24 hours. Awaited. Around 2 PM. Fall precaution. PT/OT/speech evaluation. Villa diet accordingly. Aspirin 81 mg daily, statin 80 mg nightly. Appreciate A1c, lipid panel. Goal blood pressure today less than 140/90 mmHg after 24 hours of tPA. Appreciate echocardiogram. 2. 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 Atrial fibrillation and flutter: Currently rate controlled. Will need anticoagulation prior to discharge. Patient is post tPA in less than 24 hours. Will plan to add anticoagulation in next 24 hours. 4. Primary hypertension: Elevated. 24 hours after tPA hold blood pressure less than 140/90 mmHg. Till then continue with IV hydralazine 5 mg every 6 hours as needed for systolic more than 160. After that can gradually start Coreg at 6.25 mg twice daily, Entresto 1 tablet twice daily, amlodipine 10 mg oral daily with goal blood pressure in mind. Uptitrate as per goal blood pressures in next 24 to 48 hours. 5. Acute combined systolic and diastolic congestive heart failure: Echocardiogram done shows EF of 3035%, apical akinetic wall, severely dilated LA with trace MR. Currently patient euvolemic. Given history of CAD will be important to rule out ACS. Will plan for Lexiscan stress test on Wednesday. N.p.o. after midnight on Wednesday night. Coreg and Entresto as above. Uptitrate guideline directed medical therapy accordingly. Check chest x-ray, proBNP. Fluid restriction to less than 1500 cc. Watch for fluid overload. 6. Type 2 diabetes mellitus with hyperglycemia, without long-term current use of insulin: Uncontrolled. A1c more than 10. Continue with insulin sliding scale. Depending on insulin requirement in next 24 hours will add Lantus. Patient will most likely need to be discharged on insulin, and Farxiga. 7. CAD (coronary artery disease): Post PCI in 2012. Currently denies any active chest pain. Appreciate A1c, lipid panel. 8. Hyperlipidemia: Plan: CODE STATUS: Discussed in detail with the patient. Nephew will be the DPOA. DNR/DNI SCD for DVT prophylaxis Advance diet as per speech evaluation. Carb consistent diet Protonix for PUD prophylaxis Care discussed in detail with patient's family at bedside. All the questions were answered. Discharge plan: Patient lives by himself. Nephew states it would be better if he continues to have weakness for him to possibly transition to SNF otherwise he is available to take patient his home his home as well but would want to see how he does in next 24 to 48 hours with PT. Case management alerted. 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
--- NOTE | 2024-10-14 13:21 | ECG_ITS ---
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 Interpretive Statements Lung unchanged pre/post procedure; Intraprocedure shortess of breath; Symptoms resoled by discharge [email or web address] [id number]
[2024-10-14] MEDS: pneumococcal (23 valent) SDV 0.5 mL IM (13:42)
--- NOTE | 2024-10-14 14:17 | PC.NURSE ---
assisted up in chair with assist transfer mat , unable to bear weight on right leg and right arm remains severly weak ,, able to eat with left hand speech remains slurred and facial gtt . ct scan head repeat this pm
--- NOTE | 2024-10-14 15:53 | P.PN_ITS ---
Subjective 2 Subjective: Dr. Mckeon asked me to see the patient today and make recommendation for anticoagulation as he has documented atrial fibrillation as the most likely cause of his stroke. He is still profoundly weak on the right side. He is unable to bear weight on the right leg. Vitals/I&O/Wt Last Vital Signs Temp 98 F 10/14/24 14:00 Pulse 82 10/14/24 14:01 Resp 18 10/14/24 14:01 BP 155/113 10/14/24 14:01 Pulse Ox 95 10/14/24 11:00 O2 Del Method Room Air 10/14/24 09:30 10/14/24 10/14/24 10/14/24 06:59 14:59 22:59 Output Total 250 / 1075 Balance -250 / -1075 Weight last 48 hrs Weight 221 lb 1.6 oz Weight 227 lb 1.218 oz Weight 229 lb Physical Exam 2 Narrative: He is charming. His speech is not quite as dysarthric as it was yesterday so I can understand him better than I could. He is profoundly weak on the right side. Arm equals leg equals face. Sensory exam also slightly diminished on the right side compared to the left. Heart sounds normal without murmur or gallop. Data 10/14/24 11:35 10/14/24 11:35 Other data: The radiologist is questioning lower pontine infarct of questionable chronicity. I cannot appreciate any difference compared with his CT head from yesterday. No sign of hemorrhage. A&P Assessment and plan 1. 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 The patient is going to require prolonged rehabilitation which can be done at a local senior care if he prefers. 2. Left acute arterial ischemic stroke, MCA (middle cerebral artery): Actually his stroke is subcortical and more likely subcortical white matter or brainstem. There is no reason to do MRI to determine the location as it will not have any effect on treatment. I am in agreement that since the patient has been determined to have atrial fibrillation, that is most likely the source of his stroke. He is also prone to small vessel disease because of his hypertension and type 2 diabetes. 3. Atrial fibrillation and flutter: The most helpful recent study on early versus late anticoagulation showed benefit of early anticoagulation in patients with mild to moderate stroke. Considering that there is no visible abnormality on the repeat CAT scan and that the patient clinically has had a subcortical lacunar stroke (brainstem or subcortical white matter) it would be reasonable to start him on treatment within 48 hours as was done in the early anticoagulation group and this study without any increase in hemorrhage and with reduced risk of subsequent stroke. Plan: Early versus Later Anticoagulation for Stroke with Atrial Fibrillation Authors:?Jean?Juan Antonio,?M.D.? [email or web address] , ?Merlin?Evangelista,?M.D., Ph.D.,?Jarrett?Malika,?Ph.D.,?Justino?Ben,?Ph.D.? [email or web address] , ?Rosalind?Kristen,?B.Sc.,?Viet?Maria Luz,?M.D.,?Bill?Aramis,?M.D.,?+58?, for?the [employer]* [email or web address]/doi/full/[email or web address]#fn1 Author Info & Affiliations [email or web address]/doi/full/[email or web address]#tab- contributors Published?July 01, 2022 N Engl J Med?2022;388:0930-4683 DOI: [email or web address] VOL.?388?NO.?26 [email or web address] Copyright ? 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
[2024-10-15] VITALS (27 sets, daily range): BP systolic 120–189; BP diastolic 73–118; PULSE 63–95; RESP 11–24; TEMP 36.4–37; O2SAT 90–98
[2024-10-15] MEDS: hyDRALAzine 20 mg/mL INJ 1 mL 5 MG IVP (00:09)
[2024-10-15 04:31] LABS: Hematocrit 52.4 % (37-53); Hemoglobin 17.60 g/dL (11.27-16.99); Mean Corpuscular HGB Conc 33.6 g/dL (30-55); Mean Corpuscular Hemoglobin 30.0 pg (27-33); Mean Corpuscular Volume 89.4 fl (82-101); Nucleated Red Blood Cells % 0 %; Platelet Count 224 10^3/cmm (157-399); Red Blood Count 5.86 10^6/uL (3.85-5.65); White Blood Count 13.14 10^3/uL (3.29-11.43)
[2024-10-15 05:13] LABS: Alanine Aminotransferase 8 U/L (0-41); Albumin Level 4.0 g/dL (3.5-5.2); Alkaline Phosphatase 60 U/L (40-130); Anion Gap 18.8 (5-19); Aspartate Amino Transferase 12 U/L (0-40); Blood Urea Nitrogen 11 mg/dL (8-23); Calcium 8.9 mg/dL (8.5-10.5); Carbon Dioxide 21 mmol/L (22-29); Chloride 100 mmol/L (98-107); Creatinine Clr Calc Pharmacy 75.4123; Globulin 2.7 g/dL (1.3-4.6); Glucose 201 mg/dL (65-115); Osmolality Calculated 287 mOsm/kg (285-295); Potassium 3.8 mmol/L (3.5-5.1); Sodium 136 mmol/L (136-145); Total Protein 6.7 g/dL (6.6-8.7)
[2024-10-15 05:18] LABS: Magnesium 2.2 mg/dL (1.7-2.3)
--- NOTE | 2024-10-15 07:25 | PC.NURSE ---
up in chair at this time using transfer air matress speech remains slurred but somewhat clearer this am , remains extremely weak on right side
[2024-10-15] MEDS: cyanocobalamin 1,000 mcg/mL SDV 1000 MCG IM (08:10)
--- NOTE | 2024-10-15 09:50 | PC.NURSE ---
3 person assist to transfer to bedside commode right leg arm flaccid assist transfer with good leg max assist once on bsc could not sit up due to list to right side held pt on while passing gas ect. per care done transfer back to chair , on transfer back very weak unable to assist staff much at this time ,
[2024-10-15] MEDS: insulin glargine 100 units/1 mL 10 UNIT SUBCUT (13:26)
--- NOTE | 2024-10-15 14:38 | P.PN_ITS ---
Subjective 2 Subjective: No acute events overnight. Seen with caregiver at bedside. Patient sitting up in chair today. Continues to have significant weakness on his right side. Able to tolerate diet. Vitals/I&O/Wt Last Vital Signs Temp 97.6 F 10/15/24 04:45 Pulse 73 10/15/24 14:00 Resp 21 H 10/15/24 14:00 BP 157/108 10/15/24 14:00 Pulse Ox 94 10/15/24 07:00 O2 Del Method Room Air 10/14/24 09:30 10/14/24 10/15/24 10/15/24 22:59 06:59 14:59 Intake Total 250 / 250 550 / 550 Output Total 650 / 1000 500 / 1500 Balance -400 / -750 -500 / -1250 550 / 550 Weight last 48 hrs Weight 98.293 kg Weight 100.289 kg Weight 103 kg Physical Exam 2 Narrative: General: No acute distress, AO x3 HEENT: PERRLA, pupils bilaterally equal and reactive Chest: Normal vesicular breath sounds, no added sounds, equal good air entry bilaterally CVS: S1-S2 regular, no murmurs, no tachycardia, no gallops, no rubs Abdomen: Soft, nontender, no organomegaly, bowel sounds present Neuro: No focal deficits, no facial deformity, AO x3, power 5/5 in all limbs Data 10/15/24 02:55 10/15/24 02:55 A&P Assessment and plan 1. Left acute arterial ischemic stroke, MCA (middle cerebral artery): Post tenecteplase. Appreciate neurology recommendation. Repeat CT scan of head in 24 hours. Awaited. Around 2 PM. Fall precaution. PT/OT/speech evaluation. [place] diet accordingly. Aspirin 81 mg daily, statin 80 mg nightly. Appreciate A1c, lipid panel. Goal blood pressure today less than 140/90 mmHg after 24 hours of tPA. Appreciate echocardiogram. 2. 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 Atrial fibrillation and flutter: Currently rate controlled. Will need anticoagulation prior to discharge. Patient is post tPA in less than 24 hours. Will plan to add anticoagulation in next 24 hours. 4. Primary hypertension: Elevated. 24 hours after tPA hold blood pressure less than 140/90 mmHg. Till then continue with IV hydralazine 5 mg every 6 hours as needed for systolic more than 160. After that can gradually start Coreg at 6.25 mg twice daily, Entresto 1 tablet twice daily, amlodipine 10 mg oral daily with goal blood pressure in mind. Uptitrate as per goal blood pressures in next 24 to 48 hours. 5. Acute combined systolic and diastolic congestive heart failure: Echocardiogram done shows EF of 3035%, apical akinetic wall, severely dilated LA with trace MR. Currently patient euvolemic. Given history of CAD will be important to rule out ACS. Will plan for Lexiscan stress test on Wednesday. N.p.o. after midnight on Wednesday night. Coreg and Entresto as above. Uptitrate guideline directed medical therapy accordingly. Check chest x-ray, proBNP. Fluid restriction to less than 1500 cc. Watch for fluid overload. 6. Type 2 diabetes mellitus with hyperglycemia, without long-term current use of insulin: Uncontrolled. A1c more than 10. Continue with insulin sliding scale. Depending on insulin requirement in next 24 hours will add Lantus. Patient will most likely need to be discharged on insulin, and Farxiga. 7. CAD (coronary artery disease): Post PCI in 2012. Currently denies any active chest pain. Appreciate A1c, lipid panel. 8. Hyperlipidemia: Plan: CODE STATUS: Discussed in detail with the patient. Nephew will be the DPOA. DNR/DNI SCD for DVT prophylaxis Advance diet as per speech evaluation. Carb consistent diet Protonix for PUD prophylaxis Care discussed in detail with patient's family at bedside. All the questions were answered. Discharge plan: Patient lives by himself. Nephew states it would be better if he continues to have weakness for him to possibly transition to SNF otherwise he is available to take patient his home his home as well but would want to see how he does in next 24 to 48 hours with PT. Case management alerted. Plan for the day: Continue with aspirin, statin. Goal blood pressure less than 140/90 mmHg. Blood pressures better but diastolic continues to remain elevated. Continue with current dose of amlodipine, Entresto, Coreg. If continues to remain elevated can add chlorthalidone as amlodipine and ARB has already been added. Patient received 24 units of Humalog in last 24 hours. Continues to have elevated blood sugars. Add Lantus 10 units every morning. Continue with sliding scale. Appreciate echocardiogram. Patient remains euvolemic. Continue with aspirin, statin. Appreciate neurology recommendations. Patient with persistent A-fib. Can start Lovenox 1 mg/kg body weight every 12 hourly from evening today which will be 48 hours from tenecteplase. Plan for Lexiscan stress testing. PT/OT. Advance diet as per speech evaluation. N.p.o. after midnight. Transfer to CSU. PDMP PDMP Reviewed: Not Reviewed Attestations 2 Medical Necessity Statement*: Requires further hospitalization for management of right MCA stroke post tenecteplase, significant deficits while safe discharge planning is sought, uncontrolled hypertension and type 2 diabetes mellitus, new congestive heart failure while Lexiscan is awaited Diagnoses Left acute arterial ischemic stroke, MCA (middle cerebral artery) I63.512 tPA adm status 24 hr MOLECULAR GENETIC PATHOLOGIST Z92.82 Atrial fibrillation and flutter I48.91; I48.92 Primary hypertension I10 Hypertension type: primary hypertension Acute combined systolic and diastolic congestive heart failure I50.41 Heart failure type: combined systolic and diastolic Heart failure chronicity: acute Type 2 diabetes mellitus with hyperglycemia, without long-term current use of insulin E11.65 Diabetes mellitus superintendent terminal insulin use: without snf use Diabetes mellitus complication status: with hyperglycemia CAD (coronary artery disease) I25.10 Hyperlipidemia E78.5
--- NOTE | 2024-10-15 14:38 | PC.NURSE ---
up in chair voiding per urinal family in visit
[2024-10-16] VITALS (26 sets, daily range): BP systolic 104–180; BP diastolic 67–154; PULSE 73–98; RESP 9–23; TEMP 36.5–37.1; O2SAT 90–97
[2024-10-16 03:48] LABS: Hematocrit 52.2 % (37-53); Hemoglobin 17.70 g/dL (11.27-16.99); Mean Corpuscular HGB Conc 33.9 g/dL (30-55); Mean Corpuscular Hemoglobin 30.2 pg (27-33); Mean Corpuscular Volume 89.1 fl (82-101); Nucleated Red Blood Cells % 0 %; Platelet Count 212 10^3/cmm (157-399); Red Blood Count 5.86 10^6/uL (3.85-5.65); White Blood Count 11.15 10^3/uL (3.29-11.43)
[2024-10-16 04:13] LABS: Alanine Aminotransferase 7 U/L (0-41); Albumin Level 3.9 g/dL (3.5-5.2); Alkaline Phosphatase 68 U/L (40-130); Anion Gap 16.9 (5-19); Aspartate Amino Transferase 11 U/L (0-40); Blood Urea Nitrogen 17 mg/dL (8-23); Calcium 9.1 mg/dL (8.5-10.5); Carbon Dioxide 23 mmol/L (22-29); Chloride 102 mmol/L (98-107); Creatinine Clr Calc Pharmacy 75.4123; Globulin 2.9 g/dL (1.3-4.6); Glucose 173 mg/dL (65-115); Osmolality Calculated 292 mOsm/kg (285-295); Potassium 3.9 mmol/L (3.5-5.1); Sodium 138 mmol/L (136-145); Total Protein 6.8 g/dL (6.6-8.7)
[2024-10-16 04:19] LABS: Magnesium 2.4 mg/dL (1.7-2.3)
[2024-10-16] MEDS: insulin glargine 100 units/1 mL 10 UNIT SUBCUT (06:18)
[2024-10-16] MEDS: cyanocobalamin 1,000 mcg/mL SDV 1000 MCG IM (09:04)
--- NOTE | 2024-10-16 13:06 | P.PN_ITS ---
Subjective 2 Subjective: Patient denies pain including chest pain. No shortness of breath. Family at bedside. 1 brother states that he looks better than he did last night Vitals/I&O/Wt Last Vital Signs Temp 98.3 F 10/16/24 12:00 Pulse 81 10/16/24 12:00 Resp 21 H 10/16/24 12:00 BP 155/99 10/16/24 12:00 Pulse Ox 95 10/16/24 12:00 O2 Del Method Room Air 10/14/24 09:30 10/15/24 10/16/24 10/16/24 22:59 06:59 14:59 Intake Total 250 / 800 250 / 250 Output Total 100 / 100 550 / 650 300 / 300 Balance 150 / 700 -550 / 150 -50 / -50 Weight last 48 hrs Weight 97.296 kg Weight 98.293 kg Physical Exam 2 Narrative: Alert and oriented. NIH of 8. Weakness of right side upper extremity greater than lower. Unable to raise right lower extremity off the bed. Attempts to raise arm with shoulder and traps. No dysarthria but expressive aphasia mild to moderate. Heart regular slightly tachycardic no loud murmur Lungs clear to auscultation anteriorly Abdomen obese soft nontender nondistended normal active bowel sounds Extremities no clubbing cyanosis or edema Data 10/16/24 02:38 10/16/24 02:38 CT Head: My impression: Agree with diffuse cerebellar and cerebral atrophy Radiologist's impression: CT/CT head wo con* [id number] IMPRESSION: 1. Decreased attenuation involving the lower steve, suggestive of infarct, acuity uncertain. 2. No acute intracranial hemorrhage. 3. Diffuse cerebral and cerebellar atrophy. A&P Assessment and plan 1. Left acute arterial ischemic stroke, MCA (middle cerebral artery): Post tenecteplase. Appreciate neurology assistance Repeat CT scan of head shows no hemorrhage. Fall precaution. PT/OT/speech Aspirin 81 mg daily, statin 80 mg nightly. Recommend acute rehabilitation as patient is a good candidate. He is alert and oriented and trying for increased motor activity. He is able to follow commands and can tolerate 3 hours of therapy Continue to allow permissive hypertension Appreciate echocardiogram. 2. tPA adm status 24 hr FABRICATION MANAGER: 3. Atrial fibrillation and flutter: Currently rate controlled. Will need anticoagulation prior to discharge. 4. Primary hypertension: Allow permissive hypertension 5. Acute combined systolic and diastolic congestive heart failure: Echocardiogram done shows EF of 30-35%, apical akinetic wall, severely dilated LA with trace MR. Currently patient euvolemic. 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 6. Type 2 diabetes mellitus with hyperglycemia, without long-term current use of insulin: Uncontrolled. A1c more than 10. Continue with insulin sliding scale. Will likely need to be started on insulin at discharge or transfer 7. CAD (coronary artery disease): Post PCI in 2013. 8. Hyperlipidemia: On statin Plan: CODE STATUS: Discussed in detail with the patient. Nephew will be the DPOA. DNR/DNI SCD for DVT prophylaxis Advance diet as per speech evaluation. Carb consistent diet Protonix for PUD prophylaxis Care discussed in detail with patient's family at bedside. All the questions were answered. Discharge plan: Referral to inpatient rehab. Case management sent referral Plan for the day: Continue with aspirin, statin. Continue Lantus and sliding scale Humalog Aspirin, statin, anticoagulation 7 days post tPA. Referral to inpatient rehab PDMP PDMP Reviewed: Not Reviewed Attestations 2 Medical Necessity Statement*: Patient requires continued hospitalization for acute stroke status post tPA. Coding Level of Care Code Acute Code for Chg Fwd Diagnoses Left acute arterial ischemic stroke, MCA (middle cerebral artery) I63.512 tPA adm status 24 hr FABRICATION MANAGER Z92.82 Atrial fibrillation and flutter I48.91; I48.92 Primary hypertension I10 Hypertension type: primary hypertension Acute combined systolic and diastolic congestive heart failure I50.41 Heart failure chronicity: acute Heart failure type: combined systolic and diastolic Type 2 diabetes mellitus with hyperglycemia, without long-term current use of insulin E11.65 Diabetes mellitus complication status: with hyperglycemia Diabetes mellitus ferry terminal supervisor insulin use: without ferry terminal supervisor use CAD (coronary artery disease) I25.10 Hyperlipidemia E78.5
--- NOTE | 2024-10-16 13:20 | PC.OT ---
OT TREATMENT ATTEMPTED. PATIENT HAS MULTIPLE FAMILY MEMBERS IN ROOM AND IS EATING LUNCH. TREATMENT TO BE ATTEMPTED IN P.M.
--- NOTE | 2024-10-16 13:21 | NMCV_ITS ---
NM boyd perf SPECT r/s* [id number] Javi Cedeño Age: 84 Gender: M : 1940 Exam Date: 10/16/2024 07:13 Ordering Phys: John Adame MD Technologist: DAVID Jennings Exam Location: [facility] Indications: cp STRESS TEST Please see separate stress test report in [facility] for full findings IMAGE PROTOCOL Rest/Stress 1 Lexiscan Day Radiopharmaceutical Dose (mCi) Administration Site Administered by Rest: Tc-99m 10.7 IV Nayeli Cuellar, TRACER LATHE SET UP OPERATOR Sestamibi Stress:Tc-99m 33 IV Nayeli Burgergle, TRACER LATHE SET UP OPERATOR Sestamibi Rest: 16-Oct-2024 60 Discovery 630 Stress: 16-Oct-2024 30 Discovery 630 0.4mg Lexiscan. Supine position only as patient was unable to lay prone. Patient has suffered a stroke unable to lift right arm or complete prone imaging. SPECT RESULTS Technical Quality: Good Raw Data Analysis: Normal Image Corrections: No attenuation or motion correction applied Summed Stress Score: 37 Summed Rest Score: 33 Summed Difference Score: 4 PERFUSION FINDINGS Large area of fixed perfusion defect noted in basal to distal anterior wall and extends into inferoapial segment suggestive of old myocardial ifarction without periinfarct ischemia. 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 Isabelle Morocho MD (Electronically Signed) Final Date: 16 October 2024 10:08 S
--- NOTE | 2024-10-16 13:30 | PC.SOCIAL ---
IMM Update pg 2 of IMM Updated and reviewed w/ patient. Copy provided and copy dated, initialed and placed in chart.
--- NOTE | 2024-10-16 15:21 | PC.NURSE ---
assessment coordinator rounds at 0845- gave patient and visitor stroke education book and went through it with them, patient is experiencing right sided facial droop, R. extremity weakness, and extremely slurred words. Patient states his sensation is present and equal on both sides.
[2024-10-17] VITALS (25 sets, daily range): BP systolic 97–167; BP diastolic 65–120; PULSE 68–92; RESP 8–23; TEMP 36.1–36.9; O2SAT 85–97; BMI 33.8
[2024-10-17] MEDS: insulin glargine 100 units/1 mL 10 UNIT SUBCUT (05:22)
[2024-10-17] MEDS: cyanocobalamin 1,000 mcg/mL SDV 1000 MCG IM (08:52)
--- NOTE | 2024-10-17 11:28 | PC.NURSE ---
1100 blood glucose 227
--- NOTE | 2024-10-17 11:35 | PC.NURSE ---
learning and development coordinator rounds at 0930- pt is putting in some good and focused work with TRANSACTION MANAGER at this time.
--- NOTE | 2024-10-17 15:31 | PM.PN ---
Subjective Subjective: Patient complaining that he needs a larger bowel movement. Had a small 1 this morning After rounding the nurse just advised me that the patient was able to have a large BM later today Vitals/I&O/Wt Last Vital Signs Temp 97.0 F L 10/17/24 12:00 Pulse 69 10/17/24 14:00 Resp 14 10/17/24 14:00 BP 144/109 10/17/24 13:00 Pulse Ox 95 10/17/24 14:00 O2 Del Method Nasal Cannula 10/17/24 05:00 O2 Flow Rate 2 10/17/24 05:00 10/17/24 10/17/24 10/17/24 06:59 14:59 22:59 Intake Total 500 / 500 Output Total 300 / 600 Balance -300 / -350 500 / 500 Weight last 48 hrs Weight 98 kg Weight 97.296 kg Physical Exam Narrative: Alert and oriented. NIH of 7. No dysarthria but expressive aphasia mild to moderate. Heart regular slightly tachycardic no loud murmur Lungs clear to auscultation anteriorly Abdomen obese soft nontender nondistended normal active bowel sounds Extremities no clubbing cyanosis or edema Data 10/16/24 02:38 10/16/24 02:38 A&P Assessment and plan 1. Acute ischemic vertebrobasilar artery brainstem stroke: Post tenecteplase. Appreciate neurology assistance Repeat CT scan of head shows no hemorrhage. Fall precaution. PT/OT/speech Aspirin 81 mg daily, statin 80 mg nightly. Recommend acute rehabilitation as patient is a good candidate. He is alert and oriented and trying for increased motor activity. He is able to follow commands and can tolerate 3 hours of therapy Continue to allow permissive hypertension Appreciate echocardiogram. 2. tPA adm status [address] COLLECTIONS OFFICER: tPA given on 10/13/2024 3. Atrial fibrillation and flutter: Currently rate controlled. Will need anticoagulation planning for postdischarge 4. Primary hypertension: Allow permissive hypertension Stop carvedilol and Entresto Patient with low blood pressure overnight less than 100 5. Acute combined systolic and diastolic congestive heart failure: Echocardiogram done shows EF of 30-35%, apical akinetic wall, severely dilated LA with trace MR. Currently patient euvolemic. 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 6. Type 2 diabetes mellitus with hyperglycemia, without long-term current use of insulin: Uncontrolled. A1c more than 10. Continue with insulin sliding scale. Will likely need to be started on insulin at discharge or transfer 7. CAD (coronary artery disease): Post PCI in 2013. 8. Hyperlipidemia: On statin Plan: Discharge plan: Referral to inpatient rehab. Case management sent referral Plan for the day: [facility] inpatient rehab awaiting follow-up therapy evaluation to assess improvement and meet criteria for inpatient rehab. My assessment is that this patient is the perfect candidate for inpatient rehab; he is working very hard at his motor recovery; his speech is improving and he assists with all his care. He is NOT completely dependent and is able to use his left side to eat and he is can assist with movement PDMP PDMP Reviewed: Not Reviewed Attestations Medical Necessity Statement*: Patient requires continued hospitalization for acute stroke status post tPA. Coding Level of Care Code Acute Code for [facility] Diagnoses Acute ischemic vertebrobasilar artery brainstem stroke I63.219; I63.22 tPA adm status [address] COLLECTIONS OFFICER Z92.82 Atrial fibrillation and flutter I48.91; I48.92 Primary hypertension I10 Hypertension type: primary hypertension Acute combined systolic and diastolic congestive heart failure I50.41 Heart failure chronicity: acute Heart failure type: combined systolic and diastolic Type 2 diabetes mellitus with hyperglycemia, without long-term current use of insulin E11.65 Diabetes mellitus complication status: with hyperglycemia Diabetes mellitus snf insulin use: without snf use CAD (coronary artery disease) I25.10 Hyperlipidemia E78.5
[2024-10-18] VITALS (15 sets, daily range): BP systolic 105–198; BP diastolic 70–111; PULSE 74–89; RESP 8–21; TEMP 36.6–36.9; O2SAT 86–95
[2024-10-18 03:46] LABS: Hematocrit 51.7 % (37-53); Hemoglobin 16.90 g/dL (11.27-16.99); Mean Corpuscular HGB Conc 32.7 g/dL (30-55); Mean Corpuscular Hemoglobin 29.3 pg (27-33); Mean Corpuscular Volume 89.8 fl (82-101); Nucleated Red Blood Cells % 0 %; Platelet Count 219 10^3/cmm (157-399); Red Blood Count 5.76 10^6/uL (3.85-5.65); White Blood Count 10.37 10^3/uL (3.29-11.43)
[2024-10-18 04:14] LABS: Blood Urea Nitrogen 20 mg/dL (8-23); Calcium 8.7 mg/dL (8.5-10.5); Carbon Dioxide 25 mmol/L (22-29); Chloride 103 mmol/L (98-107); Creatinine Clr Calc Pharmacy 75.3003; Glucose 157 mg/dL (65-115); Osmolality Calculated 294 mOsm/kg (285-295); Sodium 139 mmol/L (136-145)
[2024-10-18 04:18] LABS: Anion Gap 14.6 (5-19); Potassium 3.6 mmol/L (3.5-5.1)
[2024-10-18] MEDS: insulin glargine 100 units/1 mL 10 UNIT SUBCUT (05:37)
[2024-10-18] MEDS: cyanocobalamin 1,000 mcg/mL SDV 1000 MCG IM (08:40)
--- NOTE | 2024-10-18 10:54 | P.DS_ITS ---
Discharge Providers Date of Admission: 10/13/24 13:26 Date of Discharge: October 18, 2024 Attending Provider at Admission: John Adame MD Attending Provider at Discharge: Anshul Jiang DO Primary Care Provider: Cordell Parrish DO Diagnoses at Discharge Discharge Diagnosis 1. Acute ischemic vertebrobasilar artery brainstem stroke: 2. 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 Atrial fibrillation and flutter: 4. Primary hypertension: 5. Acute combined systolic and diastolic congestive heart failure: 6. Type 2 diabetes mellitus with hyperglycemia, without long-term current use of insulin: 7. CAD (coronary artery disease): 8. Hyperlipidemia: Reason for Visit Reason for Visit: stroke alert Brief History: 84-year-old man with a history of poole ry artery disease status post stents about 13 years ago, hyperlipidemia and hypertension who presents emergency room with strokelike symptoms. His last known well time was 9:30 AM. Arrival time was around 11 AM. Symptoms started after he got to breakfast and it was recognized at 1030 by family that he had changed. He has right-sided facial droop. Some right sided arm and leg weakness. 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 Some slurred speech secondary to the facial droop. He answers questions appropriately. No visual deficits. He is on Plavix but not on any anticoagulation such as Eliquis Xarelto or Coumadin. Hospital Course Hospital Course In the emergency room a stroke code was called. Neurology assessed the patient and after evaluation of NIH of [address] scan that was unremarkable thrombolytic therapy was indicated. He did have an elevated blood pressure and received 1 dose of labetalol in order to initiate TNK with permission informed consent. The patient was subsequently transferred to the ICU post thrombolytic therapy. Patient was found to have A-fib as the likely cause of his stroke. Subsequent CT scan showed ischemic changes in the steve. Initially another provider restarted blood pressure pressure medications within 24 hours and unfortunately the patient's did not show signs of improvement and so we allowed for permissive hypertension. When his blood pressure is greater than 160 systolic he is showing improved motor activity on his right side. Relatively speaking his NIH has not changed however he does show some increased movement in both the right and lower extremity. His expressive dysphagia has also improved from moderate to mild and I can understand him. Patient has been started on anticoagulation for the A-fib. Thus Plavix was discontinued however he was continued on baby aspirin. He was started on high- dose statin. Regarding diabetes he was started on insulin including Lantus and AC meals. Should be noted that patient was felt to have acute combined systolic and diastolic congestive failure. Recent echo had shown 30 to 35% EF with an apical akinetic wall and severely dilated left atrium with trace MR. A Lexiscan stress test was completed on October 16. The results are as follows: IMPRESSIONS Large area of old myocardial infarction noted in the LAD territory involving anterior anteroseptal and inferoapical wall without periinfarct ischemia. Patient continued to work with PT OT and speech. Patient is highly motivated able to follow commands and interested in aggressive rehabilitation. Referral was sent to [facility] inpatient rehab and he has been accepted for poststroke care and rehabilitation. Physical Exam Narrative: Alert and oriented. NIH of 7. No dysarthria but expressive aphasia mild Heart : Mostly regular with some ectopy. Review of telemetry reveals atrial flutter with variable 3 to 4-1 block Lungs clear to auscultation anteriorly Abdomen obese soft nontender nondistended normal active bowel sounds. Had large BM yesterday Extremities no clubbing cyanosis or edema Discharge Data Studies Completed and Pending Completed Studies During Hospitalization Category Date Time Status CT head thrombolytic 10961 Stat Cat Scan 10/13/24 10:[address] head wo con* [id number] Routine Cat Scan 10/14/24 12:30 Completed CTA head neck [CT angio headneck* [id number]] Stat Cat Scan 10/13/24 11:30 Completed Sestamibi Stress Test Request Routine Exams 10/14/24 13:21 Draft XR chest 1V portable [id number] Routine Exams 10/14/24 08:47 Completed NM boyd perf SPECT r/s* [id number] Routine Nuc Med 10/16/24 13:21 Completed CV. echo wo/w contrast [id number] Routine Ultrasound 10/13/24 13:21 Completed Radiology Impressions Head/Neck CTA 10/13/24 11:30 IMPRESSION: 1. No high-grade cervical carotid artery stenosis. Mild plaque at the bifurcations. 2. Paucity of vessels and decreased vascularity to the distal LEFT MCA territory. Decreased flow near the LEFT M3/M4 segment. No large central thrombus noted. Suspect this is the area of ischemia. 3. Mild calcified plaque in the intracranial carotid arteries. Chest X-Ray 10/14/24 08:47 IMPRESSION: Low lung volumes. No airspace disease. Cardiomegaly. Head CT 10/14/24 12:30 IMPRESSION: 1. Decreased attenuation involving the lower steve, suggestive of infarct, acuity uncertain. 2. No acute intracranial hemorrhage. 3. Diffuse cerebral and cerebellar atrophy. Laboratory Results WBC 10.37 10^3/uL (3.29-11.43) 10/18/24 02:46 RBC 5.76 10^6/uL (3.85-5.65) H 10/18/24 02:46 Hgb 16.90 g/dL (11.27-16.99) 10/18/24 02:46 Hct 51.7 % (37-53) 10/18/24 02:46 MCV 89.8 fl (82-101) 10/18/24 02:46 MCH 29.3 pg (27-33) 10/18/24 02:46 MCHC 32.7 g/dL (30-55) 10/18/24 02:46 RDW 14.6 % (12.1-15.1) 10/18/24 02:46 Plt Count 219 10^3/cmm (157-399) 10/18/24 02:46 MPV 10.9 fL (7.4-10.4) H 10/18/24 02:46 Neut % (Auto) 67.1 % 10/18/24 02:46 Lymph % (Auto) 21.2 % 10/18/24 02:46 [place] % (Auto) 9.5 % 10/18/24 02:46 Eos % (Auto) 1.4 % 10/18/24 02:46 Baso % (Auto) 0.4 % 10/18/24 02:46 Neut # (Auto) 6.96 10^3/uL (1.8-7.7) 10/18/24 02:46 Lymph # (Auto) 2.2 10^3/uL (0.8-4.8) 10/18/24 02:46 [place] # (Auto) 1.0 10^3/uL (0.2-0.9) H 10/18/24 02:46 Eos # (Auto) 0.2 10^3/uL (0.0-0.8) 10/18/24 02:46 Baso # (Auto) 0.0 10^3/uL (0.0-0.1) 10/18/24 02:46 Nucleated RBC % (auto) 0 % 10/18/24 02:46 Nucleated RBCs # 0.0 /100WBC 10/18/24 02:46 PT 12.60 SECONDS (12.1-14.9) 10/13/24 11:18 INR 0.88 (0.8-1.2) 10/13/24 11:18 APTT 27.3 SECONDS (23.9-36.7) 10/13/24 11:18 Sodium 139 mmol/L (136-145) 10/18/24 02:46 Potassium 3.6 mmol/L (3.5-5.1) 10/18/24 02:46 Chloride 103 mmol/L (98-107) 10/18/24 02:46 Carbon Dioxide 25 mmol/L (22-29) 10/18/24 02:46 Anion Gap 14.6 (5-19) 10/18/24 02:46 BUN 20 mg/dL (8-23) 10/18/24 02:46 Creatinine 0.7 mg/dL (0.7-1.2) 10/18/24 02:46 GFR Calculation Not Reportable 10/18/24 02:46 Glucose 157 mg/dL (65-115) H 10/18/24 02:46 POC Glucose 169 mg/dL (70-110) H 10/18/24 08:11 Estimat Average Glucose 243 10/14/24 11:35 Hemoglobin A1c 10.1 % (4.0-6.0) H 10/14/24 11:35 Calculated Osmolality 294 mOsm/kg (285-295) 10/18/24 02:46 Calcium 8.7 mg/dL (8.5-10.5) 10/18/24 02:46 Magnesium 2.4 mg/dL (1.7-2.3) H 10/16/24 02:38 Iron 67 ug/dL (59-158) 10/13/24 11:18 TIBC 275 mcg/dl 10/13/24 11:18 % Saturation 24.3 % (20-50) 10/13/24 11:18 Unsat Iron Binding 208 ug/dL (112-347) 10/13/24 11:18 Total Bilirubin 0.7 mg/dL (0.15-1.2) 10/16/24 02:38 AST 11 U/L (0-40) 10/16/24 02:38 ALT 7 U/L (0-41) 10/16/24 02:38 Alkaline Phosphatase 68 U/L (40-130) 10/16/24 02:38 Troponin T Baseline 26 ng/L (0-15) H 10/13/24 11:18 Troponin T 120 Minute 27.67 ng/L (0-15) H 10/13/24 13:38 Delta Troponin T 1.67 ABS# (0-10) 10/13/24 13:38 Troponin T Hi Sens 6Hr 28.61 ng/L (0-15) H 10/13/24 17:00 Troponin T Hi Sens 6Hr Delta 2.61 ng/L (0-12) 10/13/24 17:00 NT-Pro-B Natriuret Pep 1880 pg/mL (0-450) H 10/14/24 11:35 Total Protein 6.8 g/dL (6.6-8.7) 10/16/24 02:38 Albumin 3.9 g/dL (3.5-5.2) 10/16/24 02:38 Globulin 2.9 g/dL (1.3-4.6) 10/16/24 02:38 Triglycerides 178 mg/dL (0-150) H 10/14/24 11:35 Cholesterol 206 mg/dL (0-200) H 10/14/24 11:35 LDL Cholesterol, Calc 132 mg/dL (50-129) H 10/14/24 11:35 HDL Cholesterol 38 mg/dL (60-100) L 10/14/24 11:35 LDL/HDL Ratio 3.47 RATIO (0.00-3.22) H 10/14/24 11:35 Cholesterol/HDL Ratio 5.42 mg/dL (1.0-5.00) H 10/14/24 11:35 Vitamin B12 230 pg/mL (232-1245) L 10/13/24 11:18 Folate 13.5 ng/mL (4.5-32.2) 10/14/24 11:35 TSH 2.97 uIU/mL (0.27-4.20) 10/13/24 11:18 Urine Color Yellow (Yellow) 10/13/24 12:12 Urine Appearance Clear (CLEAR) 10/13/24 12:12 Urine pH 5.5 (5-7) 10/13/24 12:12 Ur Specific [place] 1.029 (1.005-1.030) 10/13/24 12:12 Urine Protein Negative (Negative) 10/13/24 12:12 Urine Glucose (UA) 3+ (Normal) H 10/13/24 12:12 Urine Ketones Negative (Negative) 10/13/24 12:12 Urine Blood Negative (Negative) 10/13/24 12:12 Urine Nitrate Negative (Negative) 10/13/24 12:12 Urine Bilirubin Negative (Negative) 10/13/24 12:12 Urine Urobilinogen 0.2 mg/dL (Negative) 10/13/24 12:12 Ur Leukocyte Esterase Negative (Negative) 10/13/24 12:12 Urine RBC 0-2 /hpf (0-2) 10/13/24 12:12 Urine WBC 0-5 /hpf (0-5) 10/13/24 12:12 Ur Squamous Epith Cells 0-5 /hpf (0-5) 10/13/24 12:12 Amorphous Sediment Not Reportable 10/13/24 12:12 Urine Bacteria None seen /hpf (NONE) 10/13/24 12:12 Hyaline Casts 0-4 /lpf H 10/13/24 12:12 Urine Opiates Screen Negative ng/mL (Negative) 10/13/24 12:12 Ur Barbiturates Screen Negative ng/mL (Negative) 10/13/24 12:12 Ur Phencyclidine Scrn Negative ng/mL (Negative) 10/13/24 12:12 Ur Amphetamines Screen Negative ng/mL (Negative) 10/13/24 12:12 U Benzodiazepines Scrn Negative ng/mL (Negative) 10/13/24 12:12 Urine Cocaine Screen Negative ng/mL (Negative) 10/13/24 12:12 U Marijuana (THC) Screen Negative ng/mL (Negative) 10/13/24 12:[address] Head: Radiologist's impression: IMPRESSION: 1. Decreased attenuation involving the lower steve, suggestive of infarct, acuity uncertain. 2. No acute intracranial hemorrhage. 3. Diffuse cerebral and cerebellar atrophy. Vitals Last Vital Signs Temp 98.5 F 10/18/24 08:00 Pulse 88 10/18/24 10:00 Resp 19 H 10/18/24 10:00 BP 165/111 10/18/24 10:00 Pulse Ox 95 10/18/24 10:00 O2 Del Method Room Air 10/18/24 06:00 O2 Flow Rate 2 10/17/24 05:00 Discharge Plan Discharge Patient Disposition: Xfer Inpatient Rehab Fac Condition: Stable Prescriptions: New Eliquis 5 mg Tablet 5 mg PO BID@0900,2100 Qty: 60 0RF docusate sodium 100 mg Capsule 100 mg PO DAILY PRN (Reason: Constipation) Qty: 30 0RF atorvastatin 40 mg Tablet 80 mg PO BEDTIME Qty: 30 0RF insulin lispro [Humalog U-100 Insulin] 100 unit/mL Solution 0 unit SUBCUT WM&BEDTIME Qty: 100 0RF insulin glargine [Lantus U-100 Insulin] 100 unit/mL Solution 10 unit SUBCUT QAM Qty: 100 0RF Continued nitroglycerin 0.4 mg tablet, sublingual 0.4 mg SUBLINGUAL Q5M PRN (Reason: chest pain) Qty: 25 3RF Rx Instructions: do not exceed 3 doses per episode aspirin [Aspir-81] 81 mg Tablet,Delayed Release (Dr/Ec) 81 mg PO DAILY potassium chloride 20 mEq tablet,ER particles/crystals 20 meq PO DAILY Held carvedilol 25 mg tablet See Rx Instructions .ROUTE .COMPLEX Qty: 270 3RF Hold Instructions: Resume on 10/25/24. Dose Instruction: TAKE ONE AND A HALF TABLETS BY MOUTH TWICE DAILY MUST ADMINISTER WITH A MEAL/FOOD Rx Instructions: TAKE ONE AND A HALF TABLETS BY MOUTH TWICE DAILY MUST ADMINISTER WITH A MEAL/FOOD valsartan-hydrochlorothiazide 80-12.5 mg tablet 1 tab PO BID Hold Instructions: Resume on 10/25/24. furosemide 20 mg tablet 20 mg PO DAILY Hold Instructions: Resume on 10/25/24. 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 OK for DC: Hospitalist Discharge Order = DC NOW: Discharge Order (Routine); Ordered 10/18/24 Ordered By: Anshul Jiang Referrals: Cordell Parrish DO [Primary Care Provider, Family Practice] Discharge Diet: As Directed Discharge Activity: As per PT/OT instructions Discharge Attestations Time Spent in Discharge Care*: greater than 30 min Quality Metrics Clinical Quality Measures [ Cerebrovascular Accident { Contraindication to Antithrombotic: None; antithrombotic prescribed; Contraindication to Anticoagulation: None; anticoagulation prescribed; Contraindication to Statin: None; Statin prescribed; Contraindication to tPA: None; TPA given; Onset of Symptoms Date: 10/13/24; Onset of Symptoms Time: 09:30; Symptom Onset Unknown: No; Reason stroke education not provided: Stroke education provided to patient; Rehab services assessed: Activities of daily living assessment, Rehabilitation assessment, Physical therapy, Occupational therapy, Speech therapy, Stroke rehabilitation, Other; Reason rehab assessment not done: Assessment not tolerated}] Coding Level of Care Code Acute Code for [facility] Fwd Diagnoses Acute ischemic vertebrobasilar artery brainstem stroke I63.219; I63.22 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
--- NOTE | 2024-10-18 11:41 | PC.SOCIAL ---
IMM Update pg 2 of IMM updated and reviewed w/ patient. Copy provided and copy dated, initialed and placed in chart.
== END 2024-10-18 13:10 | DRG 61 ==
LOC: ER 13:19 → ICU 13:27
PROVIDERS: Admitting Provider Student in an Organized Health Care Education/Training Program; Emergency Provider Emergency Medicine; Family Provider Electrodiagnostic Medicine; PCP Electrodiagnostic Medicine; Visit Provider Internal Medicine
DX: I63.9 Cerebral infarction, unspecified (principal); I50.41 Acute combined systolic (congestive) and diastolic (congestive) heart failure; G81.94 Hemiplegia, unspecified affecting left nondominant side; I48.92 Unspecified atrial flutter; R29.810 Facial weakness; R47.81 Slurred speech; I11.0 Hypertensive heart disease with heart failure; R29.708 NIHSS score 8; I48.91 Unspecified atrial fibrillation; E11.65 Type 2 diabetes mellitus with hyperglycemia; E78.5 Hyperlipidemia, unspecified; I25.10 Atherosclerotic heart disease of native coronary artery without angina pectoris; Z66 Do not resuscitate; Z95.5 Presence of coronary angioplasty implant and graft; Z79.82 Long term (current) use of aspirin; Z79.02 Long term (current) use of antithrombotics/antiplatelets
CPT/HCPCS: 36415; 36416; 70450; 70496; 70498; 71045; 78452; 80048; 80053; 80061; 80306; 81001; 82607; 82746; 82962; 83036; 83540; 83550; 83735; 83880; 84443; 84484; 85025; 85610; 85730; 90471; 90732; 92507; 92523; 92526; 92610; 93005; 93017; 96372; 96374; 96375; 97110; 97112; 97116; 97162; 97166; 97530; 97535; 99291; A9500; C8929; J0360; J1650; J1815; J2785; J3101; J3420; J3490; J9999